=== PATIENT | male | born 1995 | race Caucasian/White ===

== ENCOUNTER → 2022-01-24 | Outpatient (CLI) | payer OTHER ==
[2022-01-26 03:09] LABS: CHLAMYDIA TRACHOMATIS, NAA Negative (Negative)
== END | disposition home or self-care (01) ==
LOC: LAB SHORT 13:50 → LAB 13:50
PROVIDERS: Physician Assistant
DX: N50.812 Left testicular pain (principal)
CPT/HCPCS: 87086; 87491; 87591

== ENCOUNTER → 2024-11-05 | Outpatient (CLI) | payer OTHER | END | disposition home or self-care (01) | LOC: LAB SHORT 15:21 → LAB 15:21 | DX: R30.0 Dysuria (principal) | CPT/HCPCS: 87086 ==